=== PATIENT | male | born 1990 | race Caucasian/White ===

== ENCOUNTER 2016-08-17 09:43 | Emergency (ER) | payer OTHER ==
[2016-08-17 09:49] VITALS: TEMP 97.5; BMI 34.9
[2016-08-17] MEDS ORDERED: IBUPROFEN 600 MG TABLET (FP) PO ONE ×2 (10:28→10:29)
[2016-08-17] MEDS ORDERED: IBUPROFEN 400 MG TABLET (FP) PO ONE (10:29)
--- NOTE | 2016-08-17 10:29 | PDOC ---
History of Present Illness - General History Source: Patient Exam Limitations: No Limitations - History of Present Illness Initial Comments: 08/17/16 10:51 The patient is a 26 year old male with no significant past medical history who presents to the emergency department with low back pain. 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 He has pain in the right low back. His pain does not radiate. He denies any other injuries from the fall. <Rochelle Guzman - Last Filed: 08/17/16 10:51> <Malaika Mejía - Last Filed: 08/17/16 10:57> - General Chief Complaint: Back Pain Stated Complaint: LOWER BACK PAIN Time Seen by Provider: 08/17/16 10:18 Past History <Rochelle Guzman - Last Filed: 08/17/16 10:51> - Immunization History TDAP Vaccination: Yes (01/01/2016) - Psycho/Social/Smoking Cessation Hx Anxiety: No Suicidal Ideation: No Smoking History: Never smoked Have you smoked in the past 12 months: No Information on smoking cessation initiated: No Hx Alcohol Use: No Drug/Substance Use Hx: No Substance Use Type: None <Malaika Mejía - Last Filed: 08/17/16 10:57> - Past Medical History Allergies/Adverse Reactions: Allergies Allergy/AdvReac Type Severity Reaction Status Date / Time No Known Allergies Allergy Verified 08/17/16 09:49 Home Medications: Ambulatory Orders NK [No Known Home Medication] 08/17/16 Review of Systems - Review of Systems Able to Perform ROS?: Yes Comments:: 08/17/16 10:51 GENERAL/CONSTITUTIONAL: No fever or chills. No weakness. HEAD, EYES, EARS, NOSE AND THROAT: No change in vision. No ear pain or discharge. No sore throat. MUSCULOSKELETAL: +Low back pain. No joint or muscle swelling or pain. No neck pain. SKIN: No rash NEUROLOGIC: No headache, vertigo, loss of consciousness, or change in strength/ sensation. ENDOCRINE: No increased thirst. No abnormal weight change. HEMATOLOGIC/LYMPHATIC: No anemia, easy bleeding, or history of blood clots. ALLERGIC/IMMUNOLOGIC: No hives or skin allergy. <Rochelle Guzman - Last Filed: 08/17/16 10:51> *Physical Exam - Vital Signs Last Vital Signs Temp Pulse Resp BP Pulse Ox 97.5 F L 75 20 132/75 100 08/17/16 09:46 08/17/16 09:46 08/17/16 09:46 08/17/16 09:46 08/17/16 09:46 - Physical Exam Comments: 08/17/16 10:51 GENERAL: Awake, alert, and fully oriented, in no acute distress HEAD: No signs of trauma EYES: PERRLA, EOMI, sclera anicteric, conjunctiva clear ENT: Auricles normal inspection, hearing grossly normal, nares patent, oropharynx clear without exudates. Moist mucosa MUSCULOSKELETAL: +Tenderness to palpation at the right lumbar paraspinal region. No midline tenderness. EXTREMITIES: Normal range of motion, no edema. No clubbing or cyanosis. No cords, erythema, or tenderness NEUROLOGICAL: Cranial nerves II through XII grossly intact. Normal speech, normal gait SKIN: Warm, Dry, normal turgor, no rashes or lesions noted. <Rochelle Guzman - Last Filed: 08/17/16 10:51> - Vital Signs Last Vital Signs Temp Pulse Resp BP Pulse Ox 97.5 F L 75 20 132/75 100 08/17/16 09:46 08/17/16 09:46 08/17/16 09:46 08/17/16 09:46 08/17/16 09:46 <Malaika Mejía - Last Filed: 08/17/16 10:57> *DC/Admit/Observation/Transfer - Attestations Scribe Attestion: 08/17/16 10:32 Documentation prepared by Rochelle Guzman, acting as medical practice manager for Malaika Mejía MD. <Rochelle Guzman - Last Filed: 08/17/16 10:51> - Discharge Dispostion Admit: No <Malaika Mejía - Last Filed: 08/17/16 10:57> Diagnosis at time of Disposition: Strain of lumbar region Qualifiers: Encounter type: initial encounter Qualified Code(s): S39.012A - Strain of muscle, fascia and tendon of lower back, initial encounter - Discharge Dispostion Disposition: HOME Condition at time of disposition: Stable - Referrals Referrals: Jonathan Cat MD [Primary Care Provider] -
[2016-08-17 11:14] VITALS: BP 115/70; PULSE 90
== END 2016-08-17 11:14 | disposition home or self-care (01) ==
LOC: JER 09:43
DX: S39.012A Strain of muscle, fascia and tendon of lower back, initial encounter (principal); W18.39XA Other fall on same level, initial encounter; Y93.89 Activity, other specified; Y92.89 Other specified places as the place of occurrence of the external cause; Y99.0 Civilian activity done for income or pay
CPT/HCPCS: 99282-25

== ENCOUNTER 2017-03-11 12:24 | Emergency (ER) | payer BC, OTHER ==
--- NOTE | 2017-03-11 12:56 | PDOC ---
History of Present Illness - General Chief Complaint: Back Pain Stated Complaint: LEFT LOWER BACK PAIN Time Seen by Provider: 03/11/17 12:28 History Source: Patient Exam Limitations: No Limitations - History of Present Illness Initial Comments: 27 yo M no pertinent PMH presents with L low back pain after helping a friend move yesterday. He lifted multiple heavy objects. He states that he has pain that is worse with movement, better with rest. He took motrin 400 mg yesterday with partial relief, but he had difficulty finding a comfortable sleeping position last night. No direct trauma. No dysuria. No fever/chills. Past History - Past Medical History Allergies/Adverse Reactions: Allergies Allergy/AdvReac Type Severity Reaction Status Date / Time No Known Allergies Allergy Verified 08/17/16 09:49 Home Medications: Ambulatory Orders Ibuprofen [Motrin -] 600 mg PO TID #21 tablet 03/11/17 Methocarbamol [Robaxin -] 500 mg PO HS PRN #5 tablet 03/11/17 - Immunization History TDAP Vaccination: Yes (01/01/2016) - Suicide/Smoking/Psychosocial Hx Smoking History: Never smoked Have you smoked in the past 12 months: No Hx Alcohol Use: No Drug/Substance Use Hx: No Substance Use Type: None Review of Systems - Review of Systems Able to Perform ROS?: Yes Comments:: GENERAL/CONSTITUTIONAL: No fever or chills. No weakness. HEAD, EYES, EARS, NOSE AND THROAT: No change in vision. No ear pain or discharge. No sore throat. CARDIOVASCULAR: No chest pain or shortness of breath. RESPIRATORY: No cough, wheezing, or hemoptysis. GASTROINTESTINAL: No nausea, vomiting, diarrhea or constipation. GENITOURINARY: No dysuria, frequency, or change in urination. MUSCULOSKELETAL: No joint or muscle swelling or pain. No neck pain. +Low back pain. SKIN: No rash NEUROLOGIC: No headache, vertigo, loss of consciousness, or change in strength/ sensation. ENDOCRINE: No increased thirst. No abnormal weight change. HEMATOLOGIC/LYMPHATIC: No anemia, easy bleeding, or history of blood clots. ALLERGIC/IMMUNOLOGIC: No hives or skin allergy. *Physical Exam - Physical Exam Comments: GENERAL: Awake, alert, and fully oriented, in no acute distress HEAD: No signs of trauma EYES: PERRLA, EOMI, sclera anicteric, conjunctiva clear ENT: Auricles normal inspection, hearing grossly normal, nares patent, oropharynx clear without exudates. Moist mucosa EXTREMITIES: Normal range of motion, no edema. No clubbing or cyanosis. No cords , erythema, or tenderness NEUROLOGICAL: Cranial nerves II through XII grossly intact. Normal speech, normal gait SKIN: Warm, Dry, normal turgor, no rashes or lesions noted. SPINE: No midline tenderness. +Low back soft tissue tenderness on L side. *DC/Admit/Observation/Transfer Diagnosis at time of Disposition: Low back strain Qualifiers: Encounter type: initial encounter Qualified Code(s): S39.012A - Strain of muscle, fascia and tendon of lower back, initial encounter - Discharge Dispostion Disposition: HOME Condition at time of disposition: Stable Admit: No - Prescriptions Prescriptions: Ibuprofen [Motrin -] 600 mg PO TID #21 tablet Methocarbamol [Robaxin -] 500 mg PO HS PRN #5 tablet PRN Reason: Muscle Spasms - Patient Instructions Printed Discharge Instructions: DI for Low Back Pain, DI for Muscle Strain
[2017-03-11 13:19] VITALS: BP 139/96; PULSE 90; TEMP 98.2; BMI 34.8
== END 2017-03-11 13:01 | disposition home or self-care (01) ==
LOC: FER 12:24
DX: S39.012A Strain of muscle, fascia and tendon of lower back, initial encounter (principal); X58.XXXA Exposure to other specified factors, initial encounter; Y93.89 Activity, other specified; Y92.9 Unspecified place or not applicable
CPT/HCPCS: 99282-25

== ENCOUNTER 2017-03-14 13:21 | Emergency (ER) | payer BC, OTHER ==
[2017-03-14 13:32] VITALS: BP 126/84; PULSE 84; TEMP 99.1; BMI 36.0
--- NOTE | 2017-03-14 13:52 | PDOC ---
History of Present Illness - General History Source: Patient (Fell down stairs, now complains of headache. ) Exam Limitations: No Limitations - History of Present Illness Timing/Duration: 1 hour Severity: mild Associated Symptoms: reports: headaches <Mandeep Hinojosa - Last Filed: 03/14/17 14:14> - General History Source: Patient (Patient walked in along with aprilwyvonnie, informing us that he has headache after tripped and fell earlier. Denies LOC, No neck pain, no other injury.) Exam Limitations: No Limitations - History of Present Illness Timing/Duration: unsure Severity: mild Associated Symptoms: reports: denies symptoms <Hawa Colon - Last Filed: 03/17/17 11:59> - General Chief Complaint: Head/Neck problem Stated Complaint: HEAD INJURY Time Seen by Provider: 03/14/17 13:37 Past History <Mandeep Hinojosa - Last Filed: 03/14/17 14:14> - Travel Traveled outside of the country in the last 30 days: No Close contact w/someone who was outside of country & ill: No - Past Medical History Other medical history: denies - Surgical History Other Surgical History: denied 03/17/17 11:55 - Immunization History TDAP Vaccination: Yes (01/01/2016) - Suicide/Smoking/Psychosocial Hx Smoking History: Never smoked Have you smoked in the past 12 months: No Hx Alcohol Use: No Drug/Substance Use Hx: No Substance Use Type: None <Hawa Colon - Last Filed: 03/17/17 11:59> - Past Medical History Allergies/Adverse Reactions: Allergies Allergy/AdvReac Type Severity Reaction Status Date / Time No Known Allergies Allergy Verified 08/17/16 09:49 Home Medications: Ambulatory Orders Ibuprofen [Motrin -] 600 mg PO TID #21 tablet 03/11/17 Methocarbamol [Robaxin -] 500 mg PO HS PRN #5 tablet 03/11/17 Review of Systems - Review of Systems Able to Perform ROS?: Yes Constitutional: Yes: See HPI HEENTM: Yes: Other (Swollen lip. ) Neurological: Yes: Headache All Other Systems: Reviewed and Negative (Social drinker. No smoking. No illicit drugs.) <Mandeep Hinojosa - Last Filed: 10/10/17 14:14> - Review of Systems Able to Perform ROS?: Yes Is the patient limited Czech proficient: Yes Constitutional: No: Symptoms Reported, See HPI, Chills, Diaphoresis, Fever, Loss of Appetite, Malaise, Night Sweats, Weakness, Weight Stable, Unintentional Wgt. Loss, Unexplained wgt Loss, Other HEENTM: No: Symptoms Reported, See HPI, Eye Pain, Blurred Vision, Tearing, Recent change in vision, Double Vision, Cataracts, Ear Pain, Ocular Prothesis, Ear Discharge, Nose Pain, Nose Congestion, Tinnitus, Nose Bleeding, Hearing Loss , Throat Pain, Throat Swelling, Mouth Pain, Dental Problems, Difficulty Swallowing, Mouth Swelling, Other Respiratory: No: Symptoms reported, See HPI, Cough, Orthopnea, Shortness of Breath, SOB with Exertion, SOB at Rest, Stridor, Wheezing, Productive cough, Hemoptysis, Other Cardiac (ROS): No: Symptoms Reported, See HPI, Chest Pain, Edema, Irregular Heart Rate, Lightheadedness, Palpitations, Syncope, Chest Tightness, Other ABD/GI: No: Symptoms Reported, See HPI, Abdominal Distended, Abd. Pain w/ defecation, Blood Streaked Bowels, Constipated, Diarrhea, Difficulty Swallowing , Nausea, Poor Appetite, Poor Fluid Intake, Rectal Bleeding, Vomiting, Indigestion, Abdominal cramping, Tarry Stools, Other Neurological: Yes: See HPI, Headache. No: Numbness, Paresthesia, Pre-Existing Deficit, Seizure, Weakness, Unsteady Gait, Ataxia, Dizziness Psychiatric: No: Anxiety, Depression, Frequent Crying, Stressors, Sleep Pattern Change, Emotional Problems, Mood Swings, Change in Appetite, Other Endocrine: No: Symptoms Reported, See HPI, Excessive Sweating, Flushing, Intolerance to Cold, Intolerance to Heat, Increased Hunger, Increased Thirst, Increased Urine, Unexplained Weight Gain, Unexplained Weight Loss, Change in Weight, Other All Other Systems: Reviewed and Negative <Hawa Colon - Last Filed: 03/17/17 11:59> *Physical Exam - Vital Signs Last Vital Signs Temp Pulse Resp BP Pulse Ox 99.1 F 84 15 126/84 97 03/14/17 13:22 03/14/17 13:22 03/14/17 13:22 03/14/17 13:22 03/14/17 13:22 - Physical Exam HEENT: positive: Other (Small superficial laceration on forehead. Small Superficial laceration inner lip. ) Neck: positive: Other (No neck pain. ) <Mandeep Hinojosa - Last Filed: 03/14/17 14:14> - Vital Signs Last Vital Signs Temp Pulse Resp BP Pulse Ox 99.1 F 84 15 126/84 97 03/14/17 13:22 03/14/17 13:22 03/14/17 13:22 03/14/17 13:22 03/14/17 13:22 - Physical Exam General Appearance: Yes: Nourished, Appropriately Dressed, Mild Distress HEENT: positive: WINST[place]. negative: Normal ENT Inspection Neck: positive: Supple. negative: Tender Respiratory/Chest: positive: Lungs Clear Cardiovascular: positive: Regular Rate Lymphatic: negative: Adenopathy Musculoskeletal: positive: Normal Inspection Extremity: positive: Normal Capillary Refill, Normal Inspection, Normal Range of Motion Integumentary: positive: Normal Color, Dry, Warm Neurologic: positive: supervisor soakers II-XII NML intact, Fully Oriented, Alert, Normal Mood/ Affect, Normal Response, Motor Strength 5/5, Other (Minimal tenderness on the scalp skin, mild tension of neck and back muscles). negative: Sensory Deficit <Hawa Colon - Last Filed: 03/17/17 11:59> *DC/Admit/Observation/Transfer - Attestations Scribe Attestion: 03/14/17 14:13 Documentation prepared by Mandeep Hinojosa, acting as medical biller coder for Hawa Colon MD/DO. <Mandeep Hinojosa - Last Filed: 03/14/17 14:14> - Discharge Dispostion Admit: No <Hawa Colon - Last Filed: 03/17/17 11:59> Diagnosis at time of Disposition: Head trauma Qualifiers: Encounter type: initial encounter Qualified Code(s): S09.90XA - Unspecified injury of head, initial encounter; S09.90XA - Unspecified injury of head, initial encounter - Discharge Dispostion Disposition: HOME Condition at time of disposition: Good - Referrals Referrals: Zelalem Posada MD [Staff Physician] - - Patient Instructions Printed Discharge Instructions: DI for Closed Head Injury
[2017-03-14] MEDS ORDERED: DIPHTH,PERTUSS(ACELL),TET 0.5 ML DISP.SYRIN IM ONE (14:07)
== END 2017-03-14 15:16 | disposition home or self-care (01) ==
LOC: FER 13:21
PROC: 3E0234Z Introduction of Serum, Toxoid and Vaccine into Muscle, Percutaneous Approach (ICD-10-PCS; principal; 2017-03-14)
DX: S09.90XA Unspecified injury of head, initial encounter (principal); W10.9XXA Fall (on) (from) unspecified stairs and steps, initial encounter; Y93.89 Activity, other specified; Y92.9 Unspecified place or not applicable
CPT/HCPCS: 70450-TC; 99281-25

== ENCOUNTER 2017-10-25 21:20 | Emergency (ER) | payer BC ==
[2017-10-25 21:32] VITALS: BP 120/88; PULSE 100; TEMP 98; BMI 34.4
[2017-10-25] MEDS ORDERED: IBUPROFEN 600 MG TABLET (FP) PO ONE ×2 (23:21→23:22)
--- NOTE | 2017-10-25 23:26 | PDOC ---
History of Present Illness - General Chief Complaint: Pain, Acute Stated Complaint: R SHOULDER PAIN Time Seen by Provider: 10/25/17 21:32 - History of Present Illness Initial Comments: This otherwise healthy 27-year-old man presents with injury to his right shoulder: a few hours prior to presentation, he fell while playing softball, impacting his right shoulder. Since then, the shoulder has been swollen and painful. He has increasing pain with movement of his upper arm. He states that the shoulder did not "pop out". He denies head/neck injury/loss of consciousness. No previous history of right shoulder pain or injury. He denies pain in the distal right arm or other extremity. There has been no chest pain/shortness of breath/abdominal pain. No significant past medical history No medications No known ALLERGIES Past History - Past Medical History Allergies/Adverse Reactions: Allergies Allergy/AdvReac Type Severity Reaction Status Date / Time No Known Allergies Allergy Verified 08/17/16 09:49 Home Medications: Ambulatory Orders Diclofenac Sodium [Voltaren -] 75 mg PO BID PRN #20 tablet. 10/25/17 COPD: No - Immunization History TDAP Vaccination: Yes (01/01/2016) - Suicide/Smoking/Psychosocial Hx Smoking History: Unknown if ever smoked Have you smoked in the past 12 months: No Number of Cigarettes Smoked Daily: 0 Information on smoking cessation initiated: No Hx Alcohol Use: No Drug/Substance Use Hx: No Substance Use Type: None Review of Systems - Review of Systems Able to Perform ROS?: Yes Comments:: 12 point review of systems is negative except for what is noted in the history of present illness *Physical Exam - Vital Signs Last Vital Signs Temp Pulse Resp BP Pulse Ox 98 F 100 H 14 120/88 100 10/25/17 21:22 10/25/17 21:22 10/25/17 21:22 10/25/17 21:22 10/25/17 21:22 - Physical Exam Comments: GENERAL: Adult male, alert and oriented 3, in no acute distress HEAD: Normal with no signs of trauma. EYES: PERRLA, EOMI, sclera anicteric, conjunctiva clear. NECK: Normal range of motion, nontender, supple without lymphadenopathy, JVD, or masses. EXTREMITIES: Right upper extremity-moderately edematous, tender area of anterosuperior aspect of shoulder without deformity Pain with arm abduction greater than 30 No clavicular tenderness or deformity No upper arm/ elbow/forearm/wrist edema/tenderness/deformity NEUROLOGICAL: Cranial nerves II through XII grossly intact. Normal speech. No focal neurological deficits. MUSCULOSKELETAL: Back non-tender to palpation, no CVA tenderness SKIN: Warm, Dry, normal turgor, no rashes or lesions noted. ED Treatment Course - RADIOLOGY Radiology Studies Ordered: Category Date Time Status SHOULDER-RIGHT [RAD] Stat Radiology 10/25/17 21:40 Completed Progress Note - Progress Note Progress Note: Right shoulder x-ray performed and interpreted by of radiology staff: No fracture/dislocation or other abnormalities seen. Results discussed with the patient. Clinical presentation most consistent with right shoulder sprain. Patient offered Toradol IM but he deferred; ibuprofen 600 mg given. 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 *DC/Admit/Observation/Transfer Diagnosis at time of Disposition: Sprain of right shoulder Qualifiers: Encounter type: initial encounter Shoulder sprain type: unspecified sprain Qualified Code(s): S43.401A - Unspecified sprain of right shoulder joint, initial encounter - Discharge Dispostion Disposition: HOME Condition at time of disposition: Stable - Prescriptions Prescriptions: Diclofenac Sodium [Voltaren -] 75 mg PO BID PRN #20 tablet.dr ARIZA Reason: Moderate Pain - Referrals - Patient Instructions Printed Discharge Instructions: Shoulder Sprain Additional Instructions: Ice to right shoulder for the next 2 days Sling on right side for the next 3 days avoid strenuous activity until seen by orthopedist Diclofenac 75 mg twice a day as needed for pain (take with food) Call your orthopedist (Dr. Slater) tomorrow to arrange follow-up within the next 5 days - Post Discharge Activity
== END 2017-10-25 23:26 | disposition home or self-care (01) ==
LOC: FER 21:20
DX: S43.401A Unspecified sprain of right shoulder joint, initial encounter (principal); X58.XXXA Exposure to other specified factors, initial encounter; Y93.64 Activity, baseball; Y92.320 Baseball field as the place of occurrence of the external cause
CPT/HCPCS: 73030-TC-RT-FY; 99282-25

== ENCOUNTER 2021-04-16 13:51 | Emergency (ER) | payer BC ==
[2021-04-16 14:32] VITALS: BP 144/99; PULSE 116; TEMP 98; BMI 33.4
[2021-04-16] MEDS ORDERED: AMOX TR/POT CLAV 875MG/125MG TABLETS (FP) PO ONE (15:16)
[2021-04-16] MEDS ORDERED: AMOX TR/POT CLAV 875MG/125MG TABLETS (FP) ONE (15:19)
== END 2021-04-16 15:24 | disposition home or self-care (01) ==
LOC: FER 13:51
PROC: 0HQFXZZ Repair Right Hand Skin, External Approach (ICD-10-PCS; principal; 2021-04-16)
DX: S61.216A Laceration without foreign body of right little finger without damage to nail, initial encounter (principal); W26.8XXA Contact with other sharp object(s), not elsewhere classified, initial encounter
CPT/HCPCS: 99283-25

== ENCOUNTER 2021-04-22 15:33 | Emergency (ER) | payer BC ==
[2021-04-22 15:48] VITALS: BP 155/89; PULSE 84; TEMP 98.9; BMI 34.9
== END 2021-04-22 16:05 | disposition home or self-care (01) ==
LOC: FER 15:33
DX: Z48.02 Encounter for removal of sutures (principal)
CPT/HCPCS: 99281-25

== ENCOUNTER 2023-02-11 09:52 | Emergency (ER) | payer BC, OTHER ==
[2023-02-11 10:05] VITALS: TEMP 98.3; BMI 35.5
[2023-02-11 10:15] VITALS: BP 131/98; PULSE 84; RESP 16
== END 2023-02-11 10:20 | disposition home or self-care (01) ==
LOC: FER 09:52
DX: S06.0X0A Concussion without loss of consciousness, initial encounter (principal); W22.8XXA Striking against or struck by other objects, initial encounter; Y93.64 Activity, baseball
CPT/HCPCS: 99283-25

== ENCOUNTER 2023-11-21 03:26 | Emergency (ER) | payer BC ==
[2023-11-21 03:42] VITALS: BP 120/82; BMI 34.7
[2023-11-21 03:46] VITALS: PULSE 78; RESP 14; TEMP 97.8
== END 2023-11-21 03:50 | disposition home or self-care (01) ==
LOC: FER 03:26
DX: T63.304A Toxic effect of unspecified spider venom, undetermined, initial encounter (principal); L29.9 Pruritus, unspecified
CPT/HCPCS: 99283-25

== ENCOUNTER 2024-10-11 09:11 | Emergency (ER) | payer BC, OTHER ==
[2024-10-11 09:21] VITALS: BP 134/92; PULSE 71; RESP 16; TEMP 98.1; BMI 34.9
[2024-10-11] MEDS ORDERED: ACETAMINOPHEN INJECTION 100 ML ONE (09:52)
[2024-10-11] MEDS ORDERED: METOCLOPRAMIDE HCL INJECTION 10 MG/2 ML VIAL ONE (09:52)
[2024-10-11 09:58] LABS: ABSOLUTE IMMATURE GRANULOCYTES 0.02 x10^3/uL (0.0-0.031); BASOPHILS # 0.05 x10^3/uL (0.01-0.08); EOSINOPHIL % 2.5 % (0.8-7.0); EOSINOPHILS # 0.11 x10^3/uL (0.04-0.54); HEMATOCRIT 42.3 % (40.1-51.0); HEMOGLOBIN 14.9 g/dL (13.7-17.5); MCHC 35.2 g/dl (32.3-36.5); MEAN CELL VOLUME 86.7 fl (79.0-92.2); MEAN PLT VOLUME 10.1 fl (9.4-12.4); MONOCYTE % 9.2 % (5.3-12.2); PLATELET COUNT 225 x10^3/uL (163-337); RDW 11.3 % (12.0-15.6)
[2024-10-11] MEDS: ACETAMINOPHEN 1000 MG/100 ML BAG IVPB ONE (10:07)
[2024-10-11] MEDS: SODIUM CHLORIDE 0.9% 500 ML INFUS.BAG IV ONE (10:07)
[2024-10-11] MEDS: METOCLOPRAMIDE HCL INJECTION 10 MG/2 ML VIAL IVPUSH ONE (10:07)
[2024-10-11 10:36] LABS: POTASSIUM 4.6 mmol/L (3.5-5.1)
[2024-10-11 10:39] LABS: CALCIUM 9.4 mg/dL (8.5-10.1)
[2024-10-11 10:40] LABS: ALBUMIN 4.2 g/dl (3.4-5.0)
[2024-10-11 10:44] LABS: BILIRUBIN,TOTAL 0.6 mg/dL (0.2-1); TOT PROT 7.4 g/dl (6.4-8.2)
== END 2024-10-11 11:43 | disposition home or self-care (01) ==
LOC: JER 09:11
PROC: 3E033NZ Introduction of Analgesics, Hypnotics, Sedatives into Peripheral Vein, Percutaneous Approach (ICD-10-PCS; principal; 2024-10-11)
PROC: 3E033GC Introduction of Other Therapeutic Substance into Peripheral Vein, Percutaneous Approach (ICD-10-PCS; 2024-10-11)
DX: G43.909 Migraine, unspecified, not intractable, without status migrainosus (principal)
CPT/HCPCS: 0241U-QW; 36415; 70450-TC; 80053; 85025; 99285-25; J0131